=== PATIENT | female | born 1960 | race Caucasian/White ===

== ENCOUNTER → 2018-12-11 | Outpatient (CLI) | payer OTHER ==
[~2018-12-11] MED LIST: ALENDRONATE SOD70 MG PO; ALEVE220 M1 PO; B-COMPLEX PLUS1 EACH; EXEMESTANE25 MG PO; IRON325 PO; LEVOTHYROXIN0.075 MG PO; MAGOX 400400 MG PO; NITROGLYCERIN0.4 MG SUBLING; NOLVADEX20 MG PO; OMEPRAZOLE40 MG PO; PANTOPRAZOLE SO40 M1 PO; POTASSIUM20 PO; PRILOSEC40 MG PO; VITAMIN B-12100 MC1 PO; VITAMIN D1000 UNI1 PO; VITAMIN D3400 UNI1 PO; ZYRTEC10 M2 PO
== END ==
LOC: M.RAD 15:44
DX: K44.9 Diaphragmatic hernia without obstruction or gangrene (principal)

== ENCOUNTER 2020-11-20 23:34 | Emergency (ER) | payer OTHER ==
[~2020-11-20] VITALS: Ht 170.2 cm; Wt 116.1 kg
[2020-11-20] MEDS ORDERED: FOSAMAX 70 MG T70 MG PO (23:58)
[2020-11-20] MEDS ORDERED: ZINC30 M1 PO (23:58)
[2020-11-21] MEDS ORDERED: DOXYCYCLINE 10100 MG PO (00:25)
[2020-11-21 00:42] VITALS: BP 178/104
== END 2020-11-21 00:43 | disposition home or self-care (01) ==
LOC: M.ERS 23:34
DX: N61.0 Mastitis without abscess (principal); K21.9 Gastro-esophageal reflux disease without esophagitis; E66.9 Obesity, unspecified; Z68.41 Body mass index [BMI] 40.0-44.9, adult; Z91.011 Allergy to milk products; Z91.010 Allergy to peanuts; Z86.2 Personal history of diseases of the blood and blood-forming organs and certain disorders involving the immune mechanism; Z85.3 Personal history of malignant neoplasm of breast